=== PATIENT | female | born 1980 | race Hispanic/Latino ===

== ENCOUNTER 2017-01-10 13:41 | Outpatient (CLI) | payer MEDICARE, MEDICAID ==
--- NOTE | 2017-01-10 17:46 | ULT ---
ULTRASOUND PELVIC DOPPLER: Date: 01/10/17 HISTORY: Left lower quadrant pain. COMPARISON: None. TECHNIQUE: Real-time Sommers scale and color evaluation of the pelvis is performed via transabdominal and transvag inal approach. FINDINGS: The uterus has been removed. Right ovary measures 2.8 x 2.3 x 1.9 cm. Left ovary measures 1.8 x 1.4 x 1.1 cm. No free fluid. Adequate flow to both ovaries. IMPRESSION: Prior hysterectomy. Normal appearance of the ovaries. POS: [facility]
== END 2017-01-10 13:42 | disposition home or self-care (01) ==
LOC: SCSULT 13:41
PROVIDERS: ATTEND Family Medicine
DX: R10.31 Right lower quadrant pain (principal)
CPT/HCPCS: 76856; 93976

== ENCOUNTER 2017-01-28 05:34 | Emergency (ER) | payer MEDICARE, MEDICAID ==
[2017-01-28 06:08] LABS: #Eosinphils 0.1 thou/uL (0.0-0.7); #Lymphocytes 1.8 thou/uL (1.20-3.40); #Monocytes 0.6 thou/uL (0.11-0.59); #Neutrophils 3.7 thou/uL (1.40-6.50); %Basophils 0.3 % (0.0-1.0); %Eosinophils 2.4 % (0.0-10.0); %Lymphocytes 28.8 % (21.0-51.0); %Monocytes 9.3 % (0.0-10.0); Mean Platelet Volume 9.4 fL (7.4-10.4); White Blood Cell (WBC) Count 6.3 thou/uL (4.8-10.8)
[2017-01-28] MEDS ORDERED: Aspirin 325 MG TAB ONE (06:13)
[2017-01-28] MEDS ORDERED: Nitroglycerin 2% Ointment 1 INCH/1 GM Packet ONE (06:13)
[2017-01-28 06:22] LABS: ALT (SGPT) 20 U/L (8-55); AST (SGOT) 19 U/L (5-34); Alkaline Phosphatase 77 U/L (40-150); Anion Gap 10 mmol/L (10-20); BUN (Urea Nitrogen) 15 mg/dL (7.0-18.7); Bilirubin, Total 0.5 mg/dL (0.2-1.2); CK (CPK) 173 U/L (29-168); Calc. Creatinine Clearance 0 mL/min (70-130); Calcium 8.6 mg/dL (7.8-10.44); Carbon Dioxide 23 mmol/L (22-29); Chloride 108 mmol/L (98-107); Estimated GFR-MDRD Greater than 90; Globulin 2.8 g/dL (2.4-3.5); Lipase 10 U/L (8-78); Protein, Total 6.5 g/dL (6.0-8.3)
[2017-01-28 06:26] LABS: Troponin I Less than 0.010 ng/mL (< 0.028)
[2017-01-28] MEDS ORDERED: Acetaminophen 500 MG TAB ONE (06:44)
[2017-01-28] MEDS ORDERED: Ketorolac Tromethamine 30 MG/ML VIAL ONE (07:06)
--- NOTE | 2017-01-28 08:14 | RAD ---
EXAM: ONE VIEW CHEST: HISTORY: Chest pain. COMPARISON: 01/07/06. FINDINGS: Normal cardiac silhouette. The pulmonary vessels and hilum are normal. No consolidation or mass. N o pneumothorax or osseous abnormalities. IMPRESSION: No acute cardiopulmonary process. POS: [facility]
--- NOTE | 2017-03-12 10:41 | EKG ---
Test Reason : CHEST PAIN Blood Pressure : / mmHG Vent. Rate : 066 BPM Atrial Rate : 066 BPM P-R Int : 138 ms QRS Dur : 078 ms QT Int : 444 ms P-R-T Axes : 046 036 034 degrees QTc Int : 465 ms Normal sinus rhythm Normal ECG Confirmed by OLGA MICHEL M.D. ([id number]), supervising film or videotape editor ISAURA CALI ([id number]) on 03/12/2017 10:41:03 AM Referred By: Confirmed By:OLGA MICHEL M.D.
== END 2017-01-28 07:23 | disposition home or self-care (01) ==
LOC: ERS 05:34
DX: F41.9 Anxiety disorder, unspecified (principal); R07.9 Chest pain, unspecified; F32.9 Major depressive disorder, single episode, unspecified; Z87.891 Personal history of nicotine dependence
CPT/HCPCS: 71010; 80053; 82553; 83690; 84484; 85025; 93005; 96360; 96372; J1885

== ENCOUNTER 2017-03-10 08:18 | Emergency (ER) | payer MEDICAID, MEDICARE ==
[2017-03-10] MEDS ORDERED: Ondansetron HCl/PF 4 MG/2 ML Vial ONE ×2 (09:09→10:24)
--- NOTE | 2017-03-10 09:50 | RAD ---
CHEST ONE VIEW: History: Chest pain. Fever. Flu. Comparison: 01-28-17 FINDINGS: Cardiac silhouette and pulmonary vasculature are unremarkable. Mediastinum is midline. There is no co nfluent airspace consolidation or evidence of pneumothorax. IMPRESSION: No active cardiopulmonary abnormalities are demonstrated. POS: [facility]
[2017-03-10] MEDS ORDERED: Acetaminophen 500 MG TAB ONE (10:08)
[2017-03-10] MEDS ORDERED: Ketorolac Tromethamine 30 MG/ML VIAL ONE (10:08)
== END 2017-03-10 10:40 | disposition home or self-care (01) ==
LOC: ERS 08:18
DX: J11.1 Influenza due to unidentified influenza virus with other respiratory manifestations (principal); R11.2 Nausea with vomiting, unspecified; F41.9 Anxiety disorder, unspecified; F32.9 Major depressive disorder, single episode, unspecified; Z87.891 Personal history of nicotine dependence
CPT/HCPCS: 71010; 96361; 96374; 96375; 96376; J1885; J2405

== ENCOUNTER 2017-06-16 10:22 | Emergency (ER) | payer MEDICARE ==
[2017-06-16 11:52] LABS: Bilirubin Negative (Negative); Blood, Urine Negative (Negative); Clarity CLEAR (Clear); Glucose, Urine (Dipstick) Negative (Negative); Leukocyte Negative (Negative); Nitrite Negative (Negative); Protein, Urine (Dipstick) Negative (Neg-Trace); Specific Gravity, Urine 1.023 (1.002-1.036); Urobilinogen 0.2 mg/dL (0.2-1.0); pH, Urine 6.5 (5.0-9.0)
[2017-06-16 11:52] LABS: #Basophils 0.1 thou/uL (0.0-0.2); #Eosinphils 0.1 thou/uL (0.0-0.7); #Lymphocytes 1.4 thou/uL (1.20-3.40); #Monocytes 0.4 thou/uL (0.11-0.59); #Neutrophils 4.2 thou/uL (1.40-6.50); %Basophils 0.9 % (0.0-1.0); %Eosinophils 2.4 % (0.0-10.0); %Monocytes 5.8 % (0.0-10.0); %Neutrophils 67.8 % (42.0-75.0); Hemoglobin 15.3 g/dL (12.0-16.0); Mean Corpuscular HGB CONC 32.2 g/dL (32.0-36.0); Mean Corpuscular Hemoglobin 29.1 pg (27.0-31.0); Mean Corpuscular Volume 90.4 fl (81.0-99.0); Mean Platelet Volume 8.7 fL (7.4-10.4); Platelet Count 216 thou/uL (130-400); RBC Distribution Width 12.8 % (11.5-14.5); Red Blood Cell (RBC) Count 5.26 mill/uL (4.20-5.40); White Blood Cell (WBC) Count 6.2 thou/uL (4.8-10.8)
[2017-06-16 11:57] LABS: BHCG - Serum Negative (NEGATIVE); Pregs Control Background? CLEAR/WHITE (CLR/WHITE); Pregs Control Bar Appear? YES (CONTROL BAR)
[2017-06-16 12:04] LABS: ALT (SGPT) 18 U/L (8-55); AST (SGOT) 16 U/L (5-34); Albumin 3.5 g/dL (3.5-5.0); Alkaline Phosphatase 70 U/L (40-150); Anion Gap 8 mmol/L (10-20); BUN (Urea Nitrogen) 16 mg/dL (7.0-18.7); Bilirubin, Total 0.6 mg/dL (0.2-1.2); Calc. Creatinine Clearance 0 mL/min (70-130); Calcium 8.5 mg/dL (7.8-10.44); Carbon Dioxide 26 mmol/L (22-29); Chloride 108 mmol/L (98-107); Estimated GFR-MDRD Greater than 90; Globulin 2.4 g/dL (2.4-3.5); Glucose 86 mg/dL (70-105); Protein, Total 5.9 g/dL (6.0-8.3); Sodium 138 mmol/L (136-145)
[2017-06-16] MEDS ORDERED: Ondansetron ODT 4 MG TAB ONE (12:42)
--- NOTE | 2017-06-16 13:55 | CT ---
NONCONTRAST CT ABDOMEN AND PELVIS: 06/16/2017 HISTORY: Bloody stools. Family history of colon cancer. Weakness. Tired. COMPARISON: Noncontrast CT exam from 06/14/[address] exam from 07/26/2016. TECHNIQUE: Contiguous axial CT images are obtained through the abdomen and pelvis after the administration of or al contrast. No IV contrast was administered due to the patient's history of an iodine allergy. FINDINGS: The lung bases are clear. Post cholecystectomy changes are noted. The right kidney is rotated, but this is a stable finding. There is no hydronephrosis present. No r enal or ureteral calculi are seen. There is a calcification seen in the left kidney pelvis, which ap pears to overly a loop of bowel as opposed to representing a calculus in the distal left ureter. Aga in, there is no left-sided hydronephrosis present. The liver, spleen, pancreas, bilateral adrenal glands, and kidneys have a grossly normal, nonenhanced CT appearance. The urinary bladder is partially distended and grossly normal in appearance. The uterus is not visualized, related to a hysterectomy. There is a low density structure seen in th e right adnexal region, which is in the expected location of the patient's right ovary, noted on prio r exams, which probably represents a small right ovarian cyst. This measures 2.5 cm. A few scattered colonic diverticula are present. The appendix is visualized and normal in caliber. Sclerotic densities are again seen in the left iliac bone, likely related to small bone islands. IMPRESSION: 1. No acute findings are seen on this nonenhanced CT scan of the abdomen and pelvis. 2. Post cholecystectomy changes. 3. Hysterectomy. 4. No hydronephrosis, and no renal or ureteral calculi are seen. 5. Right adnexal cystic lesion, probably related to a right ovarian cyst. 6. Scattered colonic diverticulosis. POS: [facility]
== END 2017-06-16 14:27 | disposition home or self-care (01) ==
LOC: ERS 10:22
DX: K57.30 Diverticulosis of large intestine without perforation or abscess without bleeding (principal); K62.5 Hemorrhage of anus and rectum; F41.9 Anxiety disorder, unspecified; F32.9 Major depressive disorder, single episode, unspecified; Z87.891 Personal history of nicotine dependence
CPT/HCPCS: 74176; 80053; 81003; 82274; 83605; 84703; 85025; 86850; 86900; 86901; Q0162

== ENCOUNTER 2017-07-21 10:28 | Emergency (ER) | payer MEDICARE, MEDICAID | END 2017-07-21 12:16 | disposition home or self-care (01) | LOC: ERS 10:28 | DX: M54.5 Low back pain (principal); F41.9 Anxiety disorder, unspecified; F32.9 Major depressive disorder, single episode, unspecified; Z79.899 Other long term (current) drug therapy | CPT/HCPCS: 99283 ==

== ENCOUNTER 2017-08-10 11:32 | Emergency (ER) | payer MEDICARE, MEDICAID ==
[2017-08-10] MEDS ORDERED: Ketorolac Tromethamine 30 MG/ML VIAL ONE (12:53)
--- NOTE | 2017-08-10 13:22 | RAD ---
LUMBAR SPINE 3 VIEWS: Date: 08/10/17 HISTORY: Injury to back with low back pain. Recent fall with back and hip pain. FINDINGS: The lumbar vertebra maintain normal height and alignment. No evidence of acute compression fracture. There are mild to moderate degenerative changes with spurring from the lumbar vertebra. No evidence o f spondylolisthesis or spondylolysis. The disc spaces are maintained. Mild facet hypertrophy is prese nt in the lower lumbar spine. IMPRESSION: There are mild to moderate degenerative changes. No evidence of acute compression deformity or fractu re. POS: [facility]
--- NOTE | 2017-08-10 13:22 | RAD ---
AP PELVIS: Date: 08/10/17 HISTORY: Fall with injury to hip and back. FINDINGS: The pelvis appears intact. No osseous abnormality identified. IMPRESSION: No acute findings. POS: [facility]
== END 2017-08-10 13:47 | disposition home or self-care (01) ==
LOC: ERS 11:32
DX: M54.5 Low back pain (principal); M54.2 Cervicalgia; J45.909 Unspecified asthma, uncomplicated; F41.9 Anxiety disorder, unspecified; F43.10 Post-traumatic stress disorder, unspecified; F32.9 Major depressive disorder, single episode, unspecified; W17.89XA Other fall from one level to another, initial encounter
CPT/HCPCS: 72100; 72170; 96372; J1885

== ENCOUNTER 2017-09-08 08:19 | Outpatient (CLI) | payer MEDICARE, MEDICAID ==
[2017-09-08] MEDS ORDERED: Iopamidol 370 76% 50 ML VIAL FS ONE (09:40)
[2017-09-08] MEDS ORDERED: Iopamidol 370 76% 100 ML VIAL ONE (09:40)
--- NOTE | 2017-09-08 11:44 | CT ---
CT ABDOMEN AND PELVIS WITH CONTRAST: COMPARISON: 07/26/16. HISTORY: Status post colonoscopy. Two tumors were found at colonoscopy. Intermittent rectal bleeding. Abdom inal pain. TECHNIQUE: Multiple contiguous axial images were obtained in a CT of the abdomen and pelvis with contrast. P.o. contrast was administered. Coronal reformats were performed. Rectal contrast was also administered . FINDINGS: The patient is status post cholecystectomy and hysterectomy. The liver, kidneys, adrenal glands, spleen, and pancreas are unremarkable. No free air, free fluid, or stranding changes are seen in the abdomen and pelvis. The small bowel and colon are adequately filled with enteric contrast. No obvious mass is seen withi n the colon. No small bowel tumor is seen. No abdominal or pelvic lymphadenopathy are seen. The ap pendix is normal. Degenerative changes are seen in the spine. The visualized inferior thorax and abdominal wall soft t issues are unremarkable. IMPRESSION: No visualized mass seen within the colon on this examination. POS: [facility]
== END 2017-09-08 08:20 | disposition home or self-care (01) ==
LOC: CT 08:19
PROVIDERS: ATTEND Family Medicine
DX: R10.9 Unspecified abdominal pain (principal)
CPT/HCPCS: 74177

== ENCOUNTER 2017-10-20 19:58 | Emergency (ER) | payer MEDICARE, MEDICAID ==
--- NOTE | 2017-10-20 20:38 | RAD ---
AP VIEW OF THE CHEST: 10/20/17 INDICATION: Rib pain, left sided. IMPRESSION: No acute cardiopulmonary abnormality. COMMENTS: The exam is compared to prior dated 03/10/17. Lungs are clear. No definite acute osseous abnormality is evident. The cardiomediastinal silhouette is within normal limits. POS: [facility]
[2017-10-20] MEDS ORDERED: HYDROcodone/Acetaminophen 10/325 mg Tablet ONE (20:40)
== END 2017-10-20 20:50 | disposition home or self-care (01) ==
LOC: ERS 19:58
DX: S20.412A Abrasion of left back wall of thorax, initial encounter (principal); S29.9XXA Unspecified injury of thorax, initial encounter; J45.909 Unspecified asthma, uncomplicated; F43.10 Post-traumatic stress disorder, unspecified; X58.XXXA Exposure to other specified factors, initial encounter
CPT/HCPCS: 71045; 93005

== ENCOUNTER 2017-12-08 04:33 | Emergency (ER) | payer MEDICARE, MEDICAID ==
[2017-12-08] MEDS ORDERED: diphenhydrAMINE 50 MG/ML VIAL ONE (05:01)
[2017-12-08] MEDS ORDERED: Famotidine/PF 20 mg/2ml Vial ONE (05:01)
[2017-12-08] MEDS ORDERED: methylPREDNISolone Sod Succ/PF 125 MG/2 ML VIAL ONE (05:01)
[2017-12-08] MEDS ORDERED: EPINEPHrine 1 MG/ML AMP ONE (05:01)
[2017-12-08 06:02] LABS: #Basophils 0.1 thou/uL (0.0-0.2); #Eosinphils 0.2 thou/uL (0.0-0.7); #Lymphocytes 3.6 thou/uL (1.20-3.40); #Monocytes 0.6 thou/uL (0.11-0.59); #Neutrophils 5.5 thou/uL (1.40-6.50); %Basophils 0.7 % (0.0-1.0); %Eosinophils 1.5 % (0.0-10.0); %Lymphocytes 35.9 % (21.0-51.0); %Monocytes 6.4 % (0.0-10.0); %Neutrophils 55.5 % (42.0-75.0); Hemoglobin 14.3 g/dL (12.0-16.0); Mean Corpuscular HGB CONC 31.6 g/dL (32.0-36.0); Mean Corpuscular Hemoglobin 28.6 pg (27.0-31.0); Mean Corpuscular Volume 90.4 fL (78.0-98.0); Mean Platelet Volume 9.5 fL (7.4-10.4); Platelet Count 174 thou/uL (130-400); RBC Distribution Width 12.1 % (11.5-14.5); Red Blood Cell (RBC) Count 4.99 mill/uL (4.20-5.40); White Blood Cell (WBC) Count 9.9 thou/uL (4.8-10.8)
[2017-12-08 06:19] LABS: ALT (SGPT) 41 U/L (8-55); AST (SGOT) 68 U/L (5-34); Albumin 2.6 g/dL (3.5-5.0); Alkaline Phosphatase 59 U/L (40-150); Anion Gap 10 mmol/L (10-20); BUN (Urea Nitrogen) 12 mg/dL (7.0-18.7); Bilirubin, Total 0.3 mg/dL (0.2-1.2); Calc. Creatinine Clearance 0 mL/min (70-130); Calcium 7.3 mg/dL (7.8-10.44); Carbon Dioxide 23 mmol/L (22-29); Chloride 112 mmol/L (98-107); Estimated GFR-MDRD Greater than 90; Globulin 1.8 g/dL (2.4-3.5); Glucose 95 mg/dL (70-105); Potassium 3.5 mmol/L (3.5-5.1); Protein, Total 4.4 g/dL (6.0-8.3); Sodium 141 mmol/L (136-145)
--- NOTE | 2017-12-08 08:20 | RAD ---
PORTABLE CHEST: DATE: 12/08/17. PROVIDED CLINICAL HISTORY: Shortness of breath. FINDINGS: Comparison 10/20/17. Cardiac and mediastinal silhouette is unchanged in appearance. No focal consolid ation, pleural fluid, or pneumothorax apparent. IMPRESSION: No evidence for an acute cardiopulmonary process. POS: [facility]
[2017-12-08] MEDS ORDERED: Ketorolac Tromethamine 30 MG/ML VIAL ONE (08:34)
--- NOTE | 2017-12-08 10:03 | ULT ---
BILATERAL LOWER EXTREMITY VENOUS DUPLEX ULTRASOUND INCLUDING COLOR AND SPECTRAL DOPPLER IMAGING: History: 37-year-old female with history of right outer thigh pain following a recent hemorrhoidectomy surgery . FINDINGS: Exam performed from groin to ankle including visualized greater saphenous, common femoral, superficia l femoral, profunda femoral, popliteal, trifurcation, and posterior tibial vein regions. There is a s omewhat exaggerated waveform with some flow reversal noted. No intraluminal thrombus. There is phasic flow at all levels. IMPRESSION: Somewhat exaggerated waveform. No evidence for deep venous thrombosis. POS: [facility]
--- NOTE | 2017-12-10 15:19 | EKG ---
Test Reason : Blood Pressure : / mmHG Vent. Rate : 068 BPM Atrial Rate : 068 BPM P-R Int : 098 ms QRS Dur : 078 ms QT Int : 436 ms P-R-T Axes : 036 037 023 degrees QTc Int : 463 ms Sinus rhythm Otherwise normal ECG Confirmed by ROCCO DACOSTA DO ([id number]), science editor ISAURA CALI ([id number]) on 12/10/2017 3:18:54 PM Referred By: Confirmed By:ROCCO DACOSTA DO
== END 2017-12-08 10:51 | disposition home or self-care (01) ==
LOC: EEVIPCON 04:33 → ERS 04:33
DX: T78.2XXA Anaphylactic shock, unspecified, initial encounter (principal); M79.651 Pain in right thigh; J45.909 Unspecified asthma, uncomplicated; F41.9 Anxiety disorder, unspecified; F43.10 Post-traumatic stress disorder, unspecified; F32.9 Major depressive disorder, single episode, unspecified; Z79.899 Other long term (current) drug therapy
CPT/HCPCS: 36415; 71045; 80053; 85025; 93005; 93970; 94640; 96361; 96372; 96374; 96375; J0171; J1200; J1885; J2930; J7620; S0028

== ENCOUNTER 2017-12-12 08:41 | Observation (INO) | payer MEDICARE, MEDICAID ==
[2017-12-12] MEDS ORDERED: Mineral Oil ENEMA PR SCH (10:15)
[2017-12-12] MEDS ORDERED: Bisacodyl 10 MG SUPP PR SCH (10:15)
[2017-12-12] MEDS ORDERED: Bisacodyl 10 MG SUPP ONE (10:54)
[2017-12-12] MEDS ORDERED: Magnesium Citrate 300 ML BOT ONE (11:54)
[2017-12-12] MEDS ORDERED: GoLYTELY 4,000 ml Bottle PO SCH (12:00)
[2017-12-12 13:11] LABS: #Eosinphils 0.2 thou/uL (0.0-0.7); #Lymphocytes 1.7 thou/uL (1.20-3.40); #Monocytes 0.5 thou/uL (0.11-0.59); %Basophils 0.5 % (0.0-1.0); %Eosinophils 2.4 % (0.0-10.0); %Lymphocytes 20.3 % (21.0-51.0); %Monocytes 5.8 % (0.0-10.0); %Neutrophils 71.1 % (42.0-75.0); Hemoglobin 13.9 g/dL (12.0-16.0); Mean Corpuscular HGB CONC 31.3 g/dL (32.0-36.0); Mean Corpuscular Hemoglobin 28.5 pg (27.0-31.0); Mean Corpuscular Volume 90.9 fL (78.0-98.0); Mean Platelet Volume 9.4 fL (7.4-10.4); Platelet Count 191 thou/uL (130-400); RBC Distribution Width 12.1 % (11.5-14.5); Red Blood Cell (RBC) Count 4.87 mill/uL (4.20-5.40); White Blood Cell (WBC) Count 8.5 thou/uL (4.8-10.8)
[2017-12-12 13:26] LABS: ALT (SGPT) 52 U/L (8-55); AST (SGOT) 14 U/L (5-34); Albumin 3.1 g/dL (3.5-5.0); Alkaline Phosphatase 56 U/L (40-150); Anion Gap 8 mmol/L (10-20); BUN (Urea Nitrogen) 10 mg/dL (7.0-18.7); Bilirubin, Total 0.3 mg/dL (0.2-1.2); Calc. Creatinine Clearance 0 mL/min (70-130); Calcium 8.6 mg/dL (7.8-10.44); Carbon Dioxide 28 mmol/L (22-29); Chloride 108 mmol/L (98-107); Estimated GFR-MDRD 90; Globulin 2.1 g/dL (2.4-3.5); Glucose 87 mg/dL (70-105); Potassium 4.1 mmol/L (3.5-5.1); Protein, Total 5.2 g/dL (6.0-8.3); Sodium 140 mmol/L (136-145)
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
--- NOTE | 2017-12-12 15:28 | RAD ---
CHEST 1 VIEW AND ABDOMEN 2 VIEWS: Date: 12/12/17 HISTORY: Abdominal pain. Recent hemorrhoidectomy. FINDINGS: The heart size is normal. The lungs are clear. There are postop changes of cholecystectomy. No free a ir or differential fluid levels are seen in the bowel loops. The bowel gas pattern is normal. No susp icious calcifications are noted. There are degenerative changes in the spine. IMPRESSION: No acute process. POS: [facility]
[2017-12-12 15:40] VITALS: BMI 35.5
[2017-12-12] MEDS: Lactated Ringer's 1,000 ML IV SCH (16:32)
[2017-12-12] MEDS: Acetaminophen 325 MG TAB PO PRN (23:25)
[2017-12-12] MEDS: Ondansetron ODT 4 MG TAB PO PRN (23:25)
[2017-12-13] MEDS: Lactated Ringer's 1,000 ML IV SCH ×4 (00:54→21:41)
--- NOTE | 2017-12-13 05:51 | PDOC.FM ---
- Subjective Subjective: Reports having loose BM's overnight with some relief of abdominal pain. She still has some RLQ pain. Endorses scant blood in stool and shortness of breath. Denies chest pain. No questions or concerns at this time. - Objective MAR Reviewed: Yes Vital Signs & Weight: Vital Signs (12 hours) Temp Pulse Resp BP Pulse Ox 12/13/17 03:10 98.5 F 61 20 103/60 97 12/12/17 23:11 98.5 F 56 L 18 129/70 97 12/12/17 19:30 99.2 F 65 16 115/70 97 Weight Weight 82.962 kg I&O: 12/11/17 12/12/17 12/13/17 06:59 06:59 06:59 Intake Total 250 Output Total 2 Balance 248 Result Diagrams: 12/12/17 12:58 12/12/17 12:58 Phys Exam - Physical Examination Constitutional: NAD Neck: supple Respiratory: no wheezing, clear to auscultation bilateral Cardiovascular: RRR, no significant murmur Gastrointestinal: soft, non-tender, positive bowel sounds Musculoskeletal: pulses present Psychiatric: normal affect, A&O x 3 Dx/Plan (1) Constipation Code(s): K59.00 - CONSTIPATION, UNSPECIFIED Status: Acute (2) Depression Code(s): F32.9 - MAJOR DEPRESSIVE DISORDER, SINGLE EPISODE, UNSPECIFIED Status : Chronic (3) Anxiety Code(s): F41.9 - ANXIETY DISORDER, UNSPECIFIED Status: Chronic - Plan Plan: Ms White is a 37yo female with pmh of anxiety, depression, and asthma presenting with constipation after recent hemorroidectomy Constipation - Failed home treatment with Miralax and MOM - Review KUB, appeared nml. Radiologist read as nml gas bowel pattern - s/p Dulcolax, fleet mineral oil enema - Chiara 10/12 - LR @125 - I&Os - Encourage PO hydration - Will need to follow up with surgeon who preformed procedure - Sitz baths PRN - will need bowel regimen with dc Asthma - Continue Albuterol PRN Anxiety/Depression - Currently not on medications Code Status: FULL DVT ppx: Lovenox
[2017-12-13] MEDS: Acetaminophen 325 MG TAB PO PRN ×2 (09:19→23:53)
[2017-12-13] MEDS: Enoxaparin Sodium 40 MG/0.4 ML SYRINGE SC SCH (09:19)
[2017-12-13 11:48] LABS: BHCG - Serum Negative (NEGATIVE); Pregs Control Background? CLEAR/WHITE (CLR/WHITE); Pregs Control Bar Appear? YES (CONTROL BAR)
[2017-12-13] MEDS: Benzocaine/Menthol 20-0.5% 60 ML CAN TOP PRN ×2 (12:30→17:08)
--- NOTE | 2017-12-13 12:50 | PRG ---
DATE OF SERVICE: 12/13/2017 Ms. White was admitted with significant abdominal pain and constipation. She has been unable to h ave a smooth bowel movement, because of hemorrhoid surgery about a week ago. She is also complaining of a great deal of discomfort in the right lower quadrant. She is afebrile, and she has a normal wh ite count, but for completeness sake, we will investigate initially with an ultrasound of the abdomen . In the meantime, we will institute a bowel regimen that will hopefully produce bowel movements.
--- NOTE | 2017-12-13 14:00 | ULT ---
ULTRASOUND ABDOMEN LIMITED: History: Right lower quadrant pain. FINDINGS: Sonographic evaluation of the right lower quadrant shows no fluid collections or free fluid at the le [place]ron of the appendix. Cysts at the right ovary measures up to 3.6 cm. Good color and spectral doppler flow within the ovary . IMPRESSION: Right ovarian cyst, 3.6 cm. POS: [facility]
[2017-12-14] MEDS: Lactated Ringer's 1,000 ML IV SCH (05:48)
--- NOTE | 2017-12-14 05:50 | PDOC.FM ---
- Subjective Subjective: Patient looks much better this AM and is sitting up in bed eating breakfast smiling. She reports abdominal pain has resolved with large BM, does endorse mild suprapubic pain and dysuria. Feels up to going home today. No other questions or concerns. - Objective MAR Reviewed: Yes Vital Signs & Weight: Vital Signs (12 hours) Temp Pulse Resp BP Pulse Ox 12/14/17 03:50 98.8 F 65 14 111/60 96 12/13/17 23:46 98.7 F 61 16 119/64 98 12/13/17 19:18 98.4 F 73 15 121/66 95 Weight Weight 82.962 kg I&O: 12/12/17 12/13/17 12/14/17 06:59 06:59 06:59 Intake Total 1429 2260 Output Total 2 Balance 1427 2260 Result Diagrams: 12/12/17 12:58 12/12/17 12:58 Phys Exam - Physical Examination Constitutional: NAD Neck: supple Respiratory: no wheezing, clear to auscultation bilateral Cardiovascular: RRR, no significant murmur Gastrointestinal: soft, non-tender, positive bowel sounds Musculoskeletal: no edema Neurological: moves all 4 limbs Psychiatric: normal affect, A&O x 3 Dx/Plan (1) Constipation Code(s): K59.00 - CONSTIPATION, UNSPECIFIED Status: Acute (2) Depression Code(s): F32.9 - MAJOR DEPRESSIVE DISORDER, SINGLE EPISODE, UNSPECIFIED Status : Chronic (3) Anxiety Code(s): F41.9 - ANXIETY DISORDER, UNSPECIFIED Status: Chronic - Plan Plan: Ms White is a 37yo female with pmh of anxiety, depression, and asthma presenting with constipation after recent hemorroidectomy Constipation - Failed home treatment with Miralax and MOM - Review KUB, appeared nml. Radiologist read as nml gas bowel pattern - s/p Dulcolax, fleet mineral oil enema - Chiara 10/12 - I&Os - Encourage PO hydration - Will need to follow up with surgeon who preformed procedure - Sitz baths PRN - will need bowel regimen with dc Dysuria - UA Asthma - Continue Albuterol PRN Anxiety/Depression - Currently not on medications Code Status: FULL DVT ppx: Lovenox
[2017-12-14 08:26] VITALS: BP 114/64; TEMP 98.4
[2017-12-14] MEDS: Acetaminophen 325 MG TAB PO PRN (09:52)
[2017-12-14] MEDS: Ondansetron ODT 4 MG TAB PO PRN (09:53)
[2017-12-14] MEDS: Enoxaparin Sodium 40 MG/0.4 ML SYRINGE SC SCH (09:54)
[2017-12-14 11:12] LABS: Bilirubin Negative (Negative); Blood, Urine Negative (Negative); Clarity CLEAR (Clear); Glucose, Urine (Dipstick) Negative (Negative); Leukocyte Negative (Negative); Nitrite Negative (Negative); Protein, Urine (Dipstick) Negative (Neg-Trace); Specific Gravity, Urine 1.006 (1.002-1.036); Urobilinogen 0.2 mg/dL (0.2-1.0)
--- NOTE | 2017-12-14 11:52 | PRG ---
DATE OF SERVICE: 12/14/2017 This is an addendum to the note of Dr. Marisa Enriquez. Ms. White had a bowel movement yesterday and looks and feels much better. Her rectal pain is grea tly diminished. She will be discharged on a bowel regimen to follow up with her colorectal surgeon t omorrow.
--- NOTE | 2017-12-14 20:56 | DIS-2 ---
DATE OF ADMISSION: 12/12/2017 DATE OF DISCHARGE: 12/14/2017 RESIDENT: Marisa Enriquez MD, PGY1 ADMITTING ATTENDING: John Kuhn MD DISCHARGE ATTENDING: John Kuhn MD CONSULTATIONS: None. PROCEDURES: 1. Acute abdominal series that shows no acute process. 2. Abdominal ultrasound showing a right ovarian cyst 3.6 cm. PRIMARY DIAGNOSIS: Constipation. SECONDARY DIAGNOSES: 1. Dysuria. 2. Asthma. 3. Anxiety and depression. DISCHARGE MEDICATIONS: 1. MiraLax 17 grams b.i.d. and daily thereafter. HISTORY OF PRESENT ILLNESS AND HOSPITAL COURSE: The patient underwent recent hemorrhoidectomy on 12/06/2017, after which she had been experiencing very hard stools and has been constipated for over a week. She had tried MiraLax at home, but failed home therapy. She received Dulcolax and a fleet enema in the ED with no result. Pt was started on GoLYTELY. She was able to have stools and abdominal pain resolved. DISPOSITION: Stable. DISCHARGE INSTRUCTIONS: 1. Location: Home. 2. Diet: Regular. 3. Activity: No restrictions. 4. Follow up with PCP within 3 days and surgeon at the [facility] who performed procedure tomorrow. SIDNEY
== END 2017-12-14 12:23 | disposition home or self-care (01) ==
LOC: ERS 08:41 → 2SW 15:03
PROVIDERS: ADMIT Family Medicine; ATTEND Family Medicine
DX: K59.00 Constipation, unspecified (principal); R30.0 Dysuria; F12.10 Cannabis abuse, uncomplicated; J45.909 Unspecified asthma, uncomplicated; F32.9 Major depressive disorder, single episode, unspecified; F41.9 Anxiety disorder, unspecified; G43.909 Migraine, unspecified, not intractable, without status migrainosus; Z79.899 Other long term (current) drug therapy; Z88.5 Allergy status to narcotic agent; Z88.8 Allergy status to other drugs, medicaments and biological substances; Z91.040 Latex allergy status; Z91.041 Radiographic dye allergy status; Z80.0 Family history of malignant neoplasm of digestive organs
CPT/HCPCS: 74022; 76705; 80053; 81003; 84703; 85025; 96360; 96361 ×3; 96372; 99285; G0378 ×2; J1650; Q0162

== ENCOUNTER 2017-12-28 13:46 | Outpatient (CLI) | payer BC, MEDICARE, MEDICAID ==
--- NOTE | 2017-12-30 10:54 | EEG ---
Referring Physician: Gilbert FOX EEG # [id number] TEST TYPE: ROUTINE OUTPATIENT REPORT: AN EEG USING THE INTERNATIONAL TEN-TWENTY SYSTEM OF ELECTRODE PLACEMENT WAS PERFORMED. The waking background is a high amplitude 9-10 hertz Alpha frequency. The patient remained awake throughout the study. Hyperventilation and photic stimulation were unremarkable. No epileptiform features were seen. IMPRESSION THIS IS A NORMAL AWAKE EEG. Learning Center Coordinator: CARLO Supervisor [employer]: DAIN.MELINDA LITTLE
== END 2017-12-28 13:47 | disposition home or self-care (01) ==
LOC: EEG 13:46
PROVIDERS: ATTEND Psychiatry & Neurology Neurology
DX: S06.890A Other specified intracranial injury without loss of consciousness, initial encounter (principal)
CPT/HCPCS: 95816

== ENCOUNTER 2018-03-26 10:25 | Emergency (ER) | payer MEDICARE, MEDICAID ==
[2018-03-26] MEDS ORDERED: Meclizine HCl 25 MG TAB ONE (10:55)
[2018-03-26] MEDS ORDERED: Ondansetron ODT 8 MG TAB ONE (11:10)
[2018-03-26 11:17] LABS: #Basophils 0.1 thou/uL (0.0-0.2); #Eosinphils 0.2 thou/uL (0.0-0.7); #Lymphocytes 2.1 thou/uL (1.20-3.40); #Monocytes 0.5 thou/uL (0.11-0.59); #Neutrophils 4.1 thou/uL (1.40-6.50); %Basophils 0.8 % (0.0-1.0); %Eosinophils 2.6 % (0.0-10.0); %Lymphocytes 30.7 % (21.0-51.0); %Monocytes 7.1 % (0.0-10.0); %Neutrophils 58.8 % (42.0-75.0); Hemoglobin 15.3 g/dL (12.0-16.0); Mean Corpuscular HGB CONC 32.3 g/dL (32.0-36.0); Mean Corpuscular Hemoglobin 28.9 pg (27.0-31.0); Mean Corpuscular Volume 89.6 fL (78.0-98.0); Mean Platelet Volume 9.5 fL (7.4-10.4); Platelet Count 178 thou/uL (130-400); RBC Distribution Width 12.1 % (11.5-14.5); Red Blood Cell (RBC) Count 5.29 mill/uL (4.20-5.40)
[2018-03-26 11:23] LABS: BHCG - Serum Negative (NEGATIVE); Pregs Control Background? CLEAR/WHITE (CLR/WHITE); Pregs Control Bar Appear? YES (CONTROL BAR)
[2018-03-26 11:25] LABS: Bilirubin Negative (Negative); Blood, Urine Negative (Negative); Clarity CLEAR (Clear); Glucose, Urine (Dipstick) Negative (Negative); Leukocyte Negative (Negative); Nitrite Negative (Negative); Protein, Urine (Dipstick) Negative (Neg-Trace); Specific Gravity, Urine 1.024 (1.002-1.036); Urobilinogen 0.2 mg/dL (0.2-1.0); pH, Urine 5.5 (5.0-9.0)
[2018-03-26 11:37] LABS: ALT (SGPT) 20 U/L (8-55); AST (SGOT) 17 U/L (5-34); Albumin 3.7 g/dL (3.5-5.0); Alkaline Phosphatase 70 U/L (40-150); Anion Gap 6 mmol/L (10-20); BUN (Urea Nitrogen) 13 mg/dL (7.0-18.7); Bilirubin, Total 0.4 mg/dL (0.2-1.2); Calc. Creatinine Clearance 0 mL/min (70-130); Calcium 8.6 mg/dL (7.8-10.44); Carbon Dioxide 23 mmol/L (22-29); Chloride 86 mmol/L (98-107); Estimated GFR-MDRD 87; Globulin 2.4 g/dL (2.4-3.5); Glucose 99 mg/dL (70-105); Lipase 7 U/L (8-78); Protein, Total 6.1 g/dL (6.0-8.3)
[2018-03-26 11:52] LABS: Potassium 2.9 mmol/L (3.5-5.1); Sodium 112 mmol/L (136-145)
[2018-03-26 13:13] LABS: Anion Gap 9 mmol/L (10-20); BUN (Urea Nitrogen) 13 mg/dL (7.0-18.7); Calc. Creatinine Clearance 0 mL/min (70-130); Calcium 8.1 mg/dL (7.8-10.44); Carbon Dioxide 23 mmol/L (22-29); Chloride 110 mmol/L (98-107); Estimated GFR-MDRD Greater than 90; Glucose 93 mg/dL (70-105); Magnesium 1.9 mg/dL (1.6-2.6); Potassium 3.8 mmol/L (3.5-5.1); Sodium 138 mmol/L (136-145)
[2018-03-26 13:58] LABS: ALT (SGPT) 17 U/L (8-55); AST (SGOT) 17 U/L (5-34); Albumin 3.2 g/dL (3.5-5.0); Alkaline Phosphatase 59 U/L (40-150); Bilirubin, Direct 0.1 mg/dL (0.1-0.3); Bilirubin, Total 0.3 mg/dL (0.2-1.2); Protein, Total 5.3 g/dL (6.0-8.3)
== END 2018-03-26 14:29 | disposition home or self-care (01) ==
LOC: ERS 10:25
DX: R10.11 Right upper quadrant pain (principal); J45.909 Unspecified asthma, uncomplicated; F43.10 Post-traumatic stress disorder, unspecified; F41.9 Anxiety disorder, unspecified; Z79.51 Long term (current) use of inhaled steroids
CPT/HCPCS: 36415; 51701; 80053; 81003; 83690; 83735; 84703; 85025; 96372; A4353

== ENCOUNTER 2018-05-13 11:19 | Emergency (ER) | payer MEDICARE, MEDICAID ==
[2018-05-13] MEDS ORDERED: traMADol HCl 50 MG TAB ONE (12:17)
== END 2018-05-13 12:36 | disposition home or self-care (01) ==
LOC: ERS 11:19
DX: K08.89 Other specified disorders of teeth and supporting structures (principal); K06.8 Other specified disorders of gingiva and edentulous alveolar ridge; F43.10 Post-traumatic stress disorder, unspecified; F41.9 Anxiety disorder, unspecified; F32.9 Major depressive disorder, single episode, unspecified
CPT/HCPCS: 99282

== ENCOUNTER 2018-05-30 12:40 | Emergency (ER) | payer MEDICARE, MEDICAID ==
--- NOTE | 2018-05-30 14:47 | RAD ---
EXAM: RIGHT HIP TWO VIEWS: History: Right hip pain following a fall. FINDINGS/IMPRESSION: Mild degenerative changes. No fracture or dislocation. POS: [facility]
--- NOTE | 2018-05-30 14:53 | RAD ---
EXAM: AP PELVIS: History: Pain following injury from a fall. Comparison: 08-10-17 FINDINGS/IMPRESSION: No fracture, dislocation or other acute osseous abnormality. Stable from prior study. POS: [facility]
--- NOTE | 2018-05-30 15:13 | RAD ---
EXAM: LUMBAR SPINE THREE VIEWS: History: Low back pain and right hip pain after a fall. Comparison: 08-10-17 FINDINGS: Generalized disc osteophytosis and facet arthrosis. Mild narrowing at L4-5. No acute fracture or disl ocation. IMPRESSION: Lumbar spondylosis. Stable from prior study. No acute fracture or dislocation. POS: [facility]
== END 2018-05-30 15:00 | disposition home or self-care (01) ==
LOC: ERS 12:40
DX: M54.5 Low back pain (principal); M25.551 Pain in right hip; J45.909 Unspecified asthma, uncomplicated; F41.9 Anxiety disorder, unspecified; F32.9 Major depressive disorder, single episode, unspecified; F17.210 Nicotine dependence, cigarettes, uncomplicated; W19.XXXA Unspecified fall, initial encounter
CPT/HCPCS: 72100; 72170

== ENCOUNTER 2018-06-06 10:46 | Emergency (ER) | payer MEDICARE, MEDICAID, OTHER ==
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
[2018-06-06] MEDS ORDERED: Cyclobenzaprine 10 MG TAB ONE (11:52)
== END 2018-06-06 12:07 | disposition home or self-care (01) ==
LOC: ERS 10:46
DX: S16.1XXA Strain of muscle, fascia and tendon at neck level, initial encounter (principal); S70.02XA Contusion of left hip, initial encounter; J45.909 Unspecified asthma, uncomplicated; F41.9 Anxiety disorder, unspecified; F32.9 Major depressive disorder, single episode, unspecified; F17.210 Nicotine dependence, cigarettes, uncomplicated; V43.92XA Unspecified car occupant injured in collision with other type car in traffic accident, initial encounter
CPT/HCPCS: 70450; 72125

== ENCOUNTER 2018-08-23 14:11 | Emergency (ER) | payer MEDICARE, MEDICAID ==
[2018-08-23 14:46] LABS: #Basophils 0.1 thou/uL (0.0-0.2); #Eosinphils 0.2 thou/uL (0.0-0.7); #Lymphocytes 1.9 thou/uL (1.20-3.40); #Monocytes 0.4 thou/uL (0.11-0.59); #Neutrophils 4.1 thou/uL (1.40-6.50); %Basophils 0.9 % (0.0-1.0); %Eosinophils 2.8 % (0.0-10.0); %Lymphocytes 28.1 % (21.0-51.0); %Monocytes 6.4 % (0.0-10.0); %Neutrophils 61.9 % (42.0-75.0); Hemoglobin 15.6 g/dL (12.0-16.0); Mean Corpuscular HGB CONC 31.4 g/dL (32.0-36.0); Mean Corpuscular Hemoglobin 28.3 pg (27.0-31.0); Mean Corpuscular Volume 90.3 fL (78.0-98.0); Platelet Count 204 thou/uL (130-400); RBC Distribution Width 12.4 % (11.5-14.5); Red Blood Cell (RBC) Count 5.52 mill/uL (4.20-5.40); White Blood Cell (WBC) Count 6.6 thou/uL (4.8-10.8)
--- NOTE | 2018-08-23 15:01 | RAD ---
FRONTAL VIEW CHEST: 08/23/18 Exam is compared to 12/08/17. INDICATION: Chest pain for two weeks. FINDINGS: There is no lobar consolidation, effusion, or discrete pneumothorax. The cardiac silhouette is of nor mal size. IMPRESSION: No focal consolidation. POS: [facility]
[2018-08-23 15:11] LABS: ALT (SGPT) 29 U/L (8-55); AST (SGOT) 21 U/L (5-34); Albumin 3.4 g/dL (3.5-5.0); Alkaline Phosphatase 60 U/L (40-150); Anion Gap 10 mmol/L (10-20); BUN (Urea Nitrogen) 14 mg/dL (7.0-18.7); Bilirubin, Total 0.4 mg/dL (0.2-1.2); Calc. Creatinine Clearance 0 mL/min (70-130); Calcium 8.2 mg/dL (7.8-10.44); Carbon Dioxide 24 mmol/L (22-29); Chloride 107 mmol/L (98-107); Estimated GFR-MDRD Greater than 90; Globulin 2.2 g/dL (2.4-3.5); Glucose 89 mg/dL (70-105); Potassium 4.2 mmol/L (3.5-5.1); Protein, Total 5.6 g/dL (6.0-8.3); Sodium 137 mmol/L (136-145)
[2018-08-23] MEDS ORDERED: methylPREDNISolone Sod Succ/PF 125 MG/2 ML VIAL ONE (15:38)
[2018-08-23] MEDS ORDERED: Lorazepam 2 MG/ML VIAL ONE (15:38)
[2018-08-23] MEDS ORDERED: Lorazepam 1 MG TAB ONE (15:54)
[2018-08-23] MEDS ORDERED: predniSONE 20 MG TAB ONE (15:54)
[2018-08-23 16:07] LABS: BHCG - Serum Negative (NEGATIVE); Pregs Control Background? CLEAR/WHITE (CLR/WHITE); Pregs Control Bar Appear? YES (CONTROL BAR)
[2018-08-23] MEDS ORDERED: Ketorolac Tromethamine 60 MG/2 ML VIAL ONE (17:07)
[2018-08-23] MEDS ORDERED: traMADol HCl 50 MG TAB ONE (17:29)
--- NOTE | 2018-08-26 10:27 | EKG ---
Test Reason : CHEST PAIN Blood Pressure : / mmHG Vent. Rate : 064 BPM Atrial Rate : 064 BPM P-R Int : 124 ms QRS Dur : 076 ms QT Int : 438 ms P-R-T Axes : 030 031 030 degrees QTc Int : 451 ms Normal sinus rhythm Normal ECG Confirmed by MOOK BRUCE ([id number]), editor in chief newspaper CHERY HENSLEY ([id number]) on 08/26/2018 10:26:49 AM Referred By: Confirmed By:MOOK BRUCE
== END 2018-08-23 17:41 | disposition home or self-care (01) ==
LOC: ERS 14:11
DX: J45.901 Unspecified asthma with (acute) exacerbation (principal); F41.9 Anxiety disorder, unspecified; F32.9 Major depressive disorder, single episode, unspecified; F17.210 Nicotine dependence, cigarettes, uncomplicated; F43.10 Post-traumatic stress disorder, unspecified
CPT/HCPCS: 36415; 71045; 80053; 84484; 84703; 85025; 93005; 94640; J1885; J2060; J2930; J7512; J7620

== ENCOUNTER 2018-12-22 08:34 | Outpatient (CLI) | payer MEDICARE ==
--- NOTE | 2018-12-22 12:16 | MRI ---
MRI BRAIN WITH AND WITHOUT CONTRAST: Date: 12/22/18 CLINICAL HISTORY: Chronic intractable headache. Reference made to head CT 06/06/18. FINDINGS: The ventricular system is normal in size. Septum pellucidum and third ventricle are midline. No evide nce of acute territorial infarction, mass effect, or midline shift. No intracranial hemorrhagic susce ptibility. There is no pathologic intra-axial enhancement. Moderate size retention cyst is centered a t the posterior right maxillary sinus. Skull base flow-voids are maintained. IMPRESSION: There are no acute intracranial abnormalities. POS: [facility]
--- NOTE | 2018-12-22 12:36 | MRI ---
MRI CERVICAL SPINE WITH AND WITHOUT CONTRAST: INDICATION: Chronic intractable headaches. FINDINGS: The cervical spinal cord demonstrates appropriate morphology, contour, and signal intensity. There i s no pathologic intramedullary enhancement. Marrow signal of the cervical spine vertebrae is maintained. Disk space heights and vertebral body h eights are preserved. No significant stenosis at the C1-2 or C2-3 levels. C3-4: There is a mild concentric disk bulge with superimposed central disk protrusion which abuts bu t does not significantly deform the cervical spinal cord. Mild central canal narrowing. No high-gra de foraminal stenosis. C4-5: Small central disk protrusion with effacement of the ventral thecal sac and mild narrowing of the central canal at the midline. Mild uncinate process hypertrophy is present bilaterally with mini mal narrowing of the neural foramina. C5-6: Broad-based disk bulge is present. Mild effacement of the ventral thecal sac with mild narrow ing of the central canal and mild bilateral neural foraminal narrowing when combined with uncinate pr ocess hypertrophy. C6-7: Mild, right asymmetric disk-osteophyte with slight effacement of the ventral thecal sac. No h igh-grade central canal stenosis. There is uncinate process hypertrophy right greater than left with mild right neural foraminal narrowing. No significant left foraminal compromise. C7-T1: No high-grade central canal or neural foraminal stenosis. There are no significant subluxations of the cervical spine. No paraspinous edema of the soft tissue s. IMPRESSION: 1. Multilevel degenerative changes of the cervical spine, as outlined above. 2. No evidence of pathologic enhancing intramedullary mass or mass producing enhancement of the vert ebral canal. POS: [facility]
== END 2018-12-22 08:35 | disposition home or self-care (01) ==
LOC: SCSMRI 08:34
PROVIDERS: ATTEND Nurse Practitioner Acute Care
DX: R51 Headache (principal); M54.2 Cervicalgia; M47.812 Spondylosis without myelopathy or radiculopathy, cervical region
CPT/HCPCS: 70553; 72156; 82565

== ENCOUNTER 2019-03-15 06:15 | Emergency (ER) | payer MEDICARE ==
[2019-03-15 06:54] LABS: Bilirubin Negative (Negative); Blood, Urine Negative (Negative); Clarity Clear (Clear); Glucose, Urine (Dipstick) Normal (Negative); Leukocyte Negative Leu/uL (Negative); Nitrite Negative (Negative); Protein, Urine (Dipstick) Negative (Neg-Trace); Urobilinogen Normal mg/dL (Less than 2)
[2019-03-15 06:56] LABS: Pregnancy Test - Urine (BHCG) Negative (Negative); Pregu Control Background? CLEAR/WHITE (CLR/WHITE); Pregu Control Bar Appear? YES (CONTROL BAR); Specific Gravity 1.028 (1.002-1.036)
== END 2019-03-15 07:10 | disposition home or self-care (01) ==
LOC: ERS 06:15
DX: J45.901 Unspecified asthma with (acute) exacerbation (principal); J06.9 Acute upper respiratory infection, unspecified; F41.9 Anxiety disorder, unspecified; F31.9 Bipolar disorder, unspecified; F17.210 Nicotine dependence, cigarettes, uncomplicated
CPT/HCPCS: 81003; 81025; 94640; J7620

== ENCOUNTER 2019-09-04 05:56 | Emergency (ER) | payer MEDICARE, OTHER ==
[2019-09-04] MEDS ORDERED: Ondansetron ODT 8 MG TAB ONE (06:38)
--- NOTE | 2019-09-04 08:05 | RAD ---
CHEST 1 VIEW: INDICATION: Cough, body aches, sore throat, headache, and history of a daughter with COVID disease. COMPARISON: Prior chest radiograph dated November 27, 2018. FINDINGS: The lungs are clear. The heart size is normal. NO pleural effusion or pneumothorax is evident. No acute osseous abnormality is noted. IMPRESSION: No acute cardiopulmonary abnormality. POS: [facility]
== END 2019-09-04 07:00 | disposition home or self-care (01) ==
LOC: ERS 05:56
DX: J06.9 Acute upper respiratory infection, unspecified (principal); J45.909 Unspecified asthma, uncomplicated; F41.9 Anxiety disorder, unspecified; F43.10 Post-traumatic stress disorder, unspecified; F17.210 Nicotine dependence, cigarettes, uncomplicated; F31.9 Bipolar disorder, unspecified; Z20.828 Contact with and (suspected) exposure to other viral communicable diseases
CPT/HCPCS: 71045; 99283; U0003; 87635; Q0162

== ENCOUNTER 2019-09-23 11:45 | Emergency (ER) | payer MEDICARE ==
--- NOTE | 2019-09-23 12:51 | RAD ---
RADIOGRAPH LEFT KNEE 4VIEWS: DATE: 09/23/2019 HISTORY: 39-year-old female with acute traumatic left knee pain FINDINGS: There is no evidence of fracture or dislocation. There is no evidence of periostitis, permeative lesi on, osteolytic lesion, or osteoblastic lesion. The joint spaces are maintained without erosions or significant osteophytes. No joint effusion is identified. IMPRESSION: Normal
--- NOTE | 2019-09-23 12:52 | RAD ---
RADIOGRAPH LEFT ELBOW 4VIEWS: DATE: 09/23/2019 HISTORY: 39-year-old female with acute, traumatic left elbow pain FINDINGS: There is no evidence of fracture or dislocation. There is no evidence of periostitis, permeative lesi on, osteolytic lesion, or osteoblastic lesion. The joint spaces are maintained without erosions or significant osteophytes. IMPRESSION: Normal
--- NOTE | 2019-09-23 12:53 | RAD ---
Radiograph left shoulder 3 views: HISTORY: 39-year-old female with acute traumatic left shoulder pain FINDINGS: No fracture or dislocation. IMPRESSION: Negative
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
== END 2019-09-23 14:00 | disposition home or self-care (01) ==
LOC: ERS 11:45 → EEVIPCON 11:45 → ERS 14:00
DX: M54.2 Cervicalgia (principal); M25.561 Pain in right knee; M25.562 Pain in left knee; M25.522 Pain in left elbow; F41.9 Anxiety disorder, unspecified; F32.9 Major depressive disorder, single episode, unspecified; F17.210 Nicotine dependence, cigarettes, uncomplicated; Y04.0XXA Assault by unarmed brawl or fight, initial encounter
CPT/HCPCS: 72125; 72170

== ENCOUNTER 2020-03-12 16:56 | Emergency (ER) | payer MEDICARE ==
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
== END 2020-03-12 21:27 | disposition left against medical advice (07) ==
LOC: ERS 16:56
DX: Z53.21 Procedure and treatment not carried out due to patient leaving prior to being seen by health care provider (principal)
CPT/HCPCS: 71045

== ENCOUNTER 2020-07-07 13:38 | Outpatient (CLI) | payer MEDICARE | END 2020-07-07 13:39 | disposition home or self-care (01) | LOC: RAD 13:38 | PROVIDERS: ATTEND Family Medicine | DX: G89.4 Chronic pain syndrome (principal); M50.90 Cervical disc disorder, unspecified, unspecified cervical region; M51.9 Unspecified thoracic, thoracolumbar and lumbosacral intervertebral disc disorder; M79.18 Myalgia, other site; M47.812 Spondylosis without myelopathy or radiculopathy, cervical region; M47.814 Spondylosis without myelopathy or radiculopathy, thoracic region | CPT/HCPCS: 72040; 72072 ==

== ENCOUNTER 2020-12-13 12:05 | Emergency (ER) | payer MEDICARE ==
[2020-12-13 12:56] LABS: #Eosinphils 0.2 thou/uL (0.0-0.7); #Lymphocytes 1.8 thou/uL (1.20-3.40); #Monocytes 0.6 thou/uL (0.11-0.59); #Neutrophils 5.3 thou/uL (1.40-6.50); %Basophils 0.5 % (0.0-1.0); %Eosinophils 2.3 % (0.0-10.0); %Lymphocytes 23.1 % (21.0-51.0); %Monocytes 7.2 % (0.0-10.0); %Neutrophils 66.8 % (42.0-75.0); Hemoglobin 14.5 g/dL (12.0-16.0); Mean Corpuscular HGB CONC 32.7 g/dL (32.0-36.0); Mean Corpuscular Hemoglobin 29.4 pg (27.0-31.0); Mean Corpuscular Volume 89.7 fL (78.0-98.0); Mean Platelet Volume 10.3 fL (7.4-10.4); Platelet Count 198 thou/uL (130-400); RBC Distribution Width 12.8 % (11.5-14.5); Red Blood Cell (RBC) Count 4.92 mill/uL (4.20-5.40); White Blood Cell (WBC) Count 7.9 thou/uL (4.8-10.8)
[2020-12-13 13:16] LABS: ALT (SGPT) 15 U/L (8-55); AST (SGOT) 13 U/L (5-34); Albumin 3.5 g/dL (3.5-5.0); Alkaline Phosphatase 85 U/L (40-110); Anion Gap 10 mmol/L (10-20); BUN (Urea Nitrogen) 14 mg/dL (7.0-18.7); Bilirubin, Total 0.3 mg/dL (0.2-1.2); Calc. Creatinine Clearance 0 mL/min (70-130); Calcium 8.5 mg/dL (7.8-10.44); Carbon Dioxide 23 mmol/L (22-29); Chloride 110 mmol/L (98-107); Globulin 2.3 g/dL (2.4-3.5); Glucose 88 mg/dL (70-105); Potassium 4.2 mmol/L (3.5-5.1); Protein, Total 5.8 g/dL (6.0-8.3); Sodium 139 mmol/L (136-145)
[2020-12-13] MEDS ORDERED: Dexamethasone 4 MG TAB ONE (13:19)
[2020-12-13] MEDS ORDERED: PROVENTIL INHALER 6.7 G (200 INHALATIONS) ONE ×2 (13:19→13:20)
[2020-12-13] MEDS ORDERED: Acetaminophen 500 MG TAB ONE (13:19)
[2020-12-13] MEDS ORDERED: Albuterol 200 PUFF (6.7GM INHALER) ONE (13:29)
== END 2020-12-13 14:57 | disposition home or self-care (01) ==
LOC: ERS 12:05
DX: R07.9 Chest pain, unspecified (principal); J44.9 Chronic obstructive pulmonary disease, unspecified; Z87.891 Personal history of nicotine dependence
CPT/HCPCS: 36415; 71045; 80053; 84484; 85025; 93005; J8540

== ENCOUNTER 2021-02-19 15:32 | Emergency (ER) | payer MEDICARE | END 2021-02-19 16:20 | disposition left against medical advice (07) | LOC: ERS 15:32 | DX: Z53.21 Procedure and treatment not carried out due to patient leaving prior to being seen by health care provider (principal) ==

== ENCOUNTER 2021-02-22 15:42 | Outpatient (CLI) | payer MEDICARE | END 2021-02-22 15:43 | disposition home or self-care (01) | LOC: RAD 15:42 | PROVIDERS: ATTEND Student in an Organized Health Care Education/Training Program | DX: S69.91XA Unspecified injury of right wrist, hand and finger(s), initial encounter (principal) ==

== ENCOUNTER 2021-09-11 08:14 | Emergency (ER) | payer MEDICARE ==
[2021-09-11] MEDS ORDERED: Mag-Al 1200 mg/1200 mg/30 ML UDCUP ONE (09:17)
[2021-09-11] MEDS ORDERED: Lidocaine Viscous Sol 2% 15 ml UD Cup ONE (09:17)
[2021-09-11] MEDS ORDERED: Ondansetron ODT 4 MG TAB ONE (09:19)
== END 2021-09-11 10:03 | disposition home or self-care (01) ==
LOC: ERS 08:14
DX: K21.00 Gastro-esophageal reflux disease with esophagitis, without bleeding (principal); R13.10 Dysphagia, unspecified
CPT/HCPCS: 99283; Q0162

== ENCOUNTER 2021-10-31 07:21 | Emergency (ER) | payer MEDICARE ==
[2021-10-31] MEDS ORDERED: Acetaminophen 500 MG TAB ONE (07:57)
[2021-10-31] MEDS ORDERED: Meclizine HCl 25 MG TAB ONE (08:35)
== END 2021-10-31 08:45 | disposition home or self-care (01) ==
LOC: ERS 07:21
DX: R51.9 Headache, unspecified (principal); R42 Dizziness and giddiness; J45.909 Unspecified asthma, uncomplicated; Z79.899 Other long term (current) drug therapy
CPT/HCPCS: 70450

== ENCOUNTER 2022-04-27 17:14 | Emergency (ER) | payer MEDICARE ==
[2022-04-27 18:12] LABS: #Eosinphils 0.1 thou/uL (0.0-0.7); #Lymphocytes 1.5 thou/uL (1.20-3.40); #Monocytes 0.6 thou/uL (0.11-0.59); #Neutrophils 5.9 thou/uL (1.40-6.50); %Basophils 0.3 % (0.0-1.0); %Eosinophils 1.4 % (0.0-10.0); %Lymphocytes 18.5 % (21.0-51.0); %Monocytes 6.8 % (0.0-10.0); %Neutrophils 73.1 % (42.0-75.0); Hemoglobin 14.4 g/dL (12.0-16.0); Mean Platelet Volume 10.1 fL (7.4-10.4); Platelet Count 160 10x3/uL (130-400); RBC Distribution Width 12.5 % (11.5-14.5); Red Blood Cell (RBC) Count 4.79 mill/uL (4.20-5.40); White Blood Cell (WBC) Count 8.1 10x3/uL (4.8-10.8)
[2022-04-27 18:29] LABS: ALT (SGPT) 16 U/L (8-55); AST (SGOT) 16 U/L (5-34); Albumin 3.1 g/dL (3.5-5.0); Alkaline Phosphatase 66 U/L (40-110); Anion Gap 9 mmol/L (10-20); BUN (Urea Nitrogen) 19 mg/dL (7.0-18.7); Bilirubin, Total 0.4 mg/dL (0.2-1.2); Calc. Creatinine Clearance 0 mL/min (70-130); Carbon Dioxide 23 mmol/L (22-29); Chloride 110 mmol/L (98-107); Estimated GFR 89; Glucose 96 mg/dL (70-105); Magnesium 1.9 mg/dL (1.6-2.6); Potassium 4.4 mmol/L (3.5-5.1); Protein, Total 5.1 g/dL (6.0-8.3); Sodium 138 mmol/L (136-145)
[2022-04-27] MEDS ORDERED: Aspirin Chewable 81 MG TAB ONE (19:40)
== END 2022-04-27 22:20 | disposition home or self-care (01) ==
LOC: ERS 17:14
DX: R07.9 Chest pain, unspecified (principal); R00.2 Palpitations; R94.31 Abnormal electrocardiogram [ECG] [EKG]; F17.210 Nicotine dependence, cigarettes, uncomplicated
CPT/HCPCS: 36415; 71045; 80053; 83735; 84484; 85025; 93005

== ENCOUNTER 2022-06-20 07:33 | Emergency (ER) | payer MEDICARE ==
[2022-06-20 08:15] LABS: #Eosinphils 0.1 thou/uL (0.0-0.7); #Lymphocytes 1.4 thou/uL (1.20-3.40); #Monocytes 0.4 thou/uL (0.11-0.59); #Neutrophils 3.7 thou/uL (1.40-6.50); %Basophils 0.6 % (0.0-1.0); %Eosinophils 2.4 % (0.0-10.0); %Lymphocytes 24.3 % (21.0-51.0); %Monocytes 7.6 % (0.0-10.0); %Neutrophils 65.1 % (42.0-75.0); Hemoglobin 13.5 g/dL (12.0-16.0); Mean Corpuscular HGB CONC 31.3 g/dL (32.0-36.0); Mean Corpuscular Hemoglobin 28.7 pg (27.0-31.0); Mean Corpuscular Volume 91.7 fl (78.0-98.0); Mean Platelet Volume 9.5 fL (7.4-10.4); Platelet Count 208 10x3/uL (130-400); RBC Distribution Width 12.8 % (11.5-14.5); Red Blood Cell (RBC) Count 4.72 mill/uL (4.20-5.40); White Blood Cell (WBC) Count 5.7 10x3/uL (4.8-10.8)
[2022-06-20 08:39] LABS: ALT (SGPT) 15 U/L (8-55); AST (SGOT) 15 U/L (5-34); Albumin 3.4 g/dL (3.5-5.0); Alkaline Phosphatase 74 U/L (40-110); Anion Gap 10 mmol/L (10-20); BUN (Urea Nitrogen) 14 mg/dL (7.0-18.7); Bilirubin, Total 0.2 mg/dL (0.2-1.2); Calc. Creatinine Clearance 0 mL/min (70-130); Calcium 8.2 mg/dL (7.8-10.44); Carbon Dioxide 21 mmol/L (22-29); Chloride 109 mmol/L (98-107); Estimated GFR 108; Globulin 2.4 g/dL (2.4-3.5); Glucose 85 mg/dL (70-105); Lipase 5 U/L (8-78); Potassium 3.8 mmol/L (3.5-5.1); Protein, Total 5.8 g/dL (6.0-8.3); Sodium 136 mmol/L (136-145)
[2022-06-20 11:23] LABS: Troponin I Less than 0.010 ng/mL (< 0.028)
[2022-06-20 11:27] LABS: Bilirubin Negative (Negative); Blood, Urine Negative (Negative); Clarity Clear (Clear); Glucose, Urine (Dipstick) Normal (Negative); Ketone, Urine Negative (Negative); Leukocyte Negative Leu/uL (Negative); Nitrite Negative (Negative); Protein, Urine (Dipstick) Negative (Neg-Trace); Urobilinogen Normal mg/dL (Less than 2); pH, Urine 7.5 (5.0-9.0)
== END 2022-06-20 12:17 | disposition home or self-care (01) ==
LOC: ERS 07:33
DX: R07.9 Chest pain, unspecified (principal); F17.210 Nicotine dependence, cigarettes, uncomplicated
CPT/HCPCS: 36415; 71045; 80053; 81003; 83690; 83880; 84484; 85025; 93005

== ENCOUNTER 2022-07-07 11:54 | Emergency (ER) | payer MEDICARE ==
[~2022-07-07 11:54] MED LIST: Iopamidol-370 76% 500 ML MDV (1 ML CHARGE) ONE
[2022-07-07 13:14] LABS: #Eosinphils 0.1 thou/uL (0.0-0.7); #Monocytes 0.4 thou/uL (0.11-0.59); #Neutrophils 5.7 thou/uL (1.40-6.50); %Basophils 0.5 % (0.0-1.0); %Eosinophils 0.9 % (0.0-10.0); %Lymphocytes 14.2 % (21.0-51.0); %Monocytes 5.9 % (0.0-10.0); %Neutrophils 78.5 % (42.0-75.0); Hemoglobin 15.5 g/dL (12.0-16.0); Mean Corpuscular HGB CONC 31.8 g/dL (32.0-36.0); Mean Corpuscular Hemoglobin 29.5 pg (27.0-31.0); Mean Corpuscular Volume 92.6 fl (78.0-98.0); Mean Platelet Volume 9.6 fL (7.4-10.4); Platelet Count 231 10x3/uL (130-400); RBC Distribution Width 12.6 % (11.5-14.5); Red Blood Cell (RBC) Count 5.24 mill/uL (4.20-5.40); White Blood Cell (WBC) Count 7.2 10x3/uL (4.8-10.8)
[2022-07-07] MEDS ORDERED: diphenhydrAMINE 50 MG/ML VIAL ONE (13:39)
[2022-07-07] MEDS ORDERED: methylPREDNISolone Sod Succ 40 MG VIAL ONE (13:39)
[2022-07-07] MEDS ORDERED: Famotidine/PF 20 mg/2ml Vial ONE (13:39)
[2022-07-07 14:16] LABS: Bilirubin Negative (Negative); Blood, Urine Negative (Negative); Clarity Clear (Clear); Glucose, Urine (Dipstick) Normal (Negative); Ketone, Urine Negative (Negative); Leukocyte Negative Leu/uL (Negative); Nitrite Negative (Negative); Protein, Urine (Dipstick) Negative (Neg-Trace); Specific Gravity, Urine 1.012 (1.002-1.036); Urobilinogen Normal mg/dL (Less than 2)
[2022-07-07 14:19] LABS: Pregnancy Test - Urine (BHCG) Negative (Negative); Pregu Control Background? CLEAR/WHITE (CLR/WHITE); Pregu Control Bar Appear? YES (CONTROL BAR); Specific Gravity 1.012 (1.002-1.036)
[2022-07-07 14:58] LABS: ALT (SGPT) 13 U/L (8-55); AST (SGOT) 16 U/L (5-34); Alkaline Phosphatase 76 U/L (40-110); Anion Gap 16 mmol/L (10-20); BUN (Urea Nitrogen) 12 mg/dL (7.0-18.7); Bilirubin, Total 0.5 mg/dL (0.2-1.2); Calc. Creatinine Clearance 0 mL/min (70-130); Carbon Dioxide 21 mmol/L (22-29); Chloride 107 mmol/L (98-107); Estimated GFR 97; Globulin 2.5 g/dL (2.4-3.5); Glucose 91 mg/dL (70-105); Lipase 46 U/L (8-78); Potassium 4.8 mmol/L (3.5-5.1); Protein, Total 6.5 g/dL (6.0-8.3); Sodium 139 mmol/L (136-145)
== END 2022-07-07 16:34 | disposition home or self-care (01) ==
LOC: EEVIPCON 11:54 → ERS 11:54
DX: Z00.00 Encounter for general adult medical examination without abnormal findings (principal); J44.9 Chronic obstructive pulmonary disease, unspecified; F17.210 Nicotine dependence, cigarettes, uncomplicated
CPT/HCPCS: 36415; 74177; 80053; 81003; 81025; 83690; 84484; 85025; 93005; 96374; 96375; J1200; J2920; Q9967; S0028

== ENCOUNTER 2022-09-18 22:14 | Emergency (ER) | payer MEDICARE ==
[2022-09-18] MEDS ORDERED: Acetaminophen 500 MG TAB ONE (23:33)
== END 2022-09-18 23:45 | disposition home or self-care (01) ==
LOC: ERS 22:14
DX: B34.9 Viral infection, unspecified (principal); F17.210 Nicotine dependence, cigarettes, uncomplicated
CPT/HCPCS: 71045; 93005

== ENCOUNTER 2023-05-04 19:20 | Emergency (ER) | payer MEDICARE ==
[2023-05-04] MEDS ORDERED: TETANUS, DIPHTHERIA TOX,ADULT (TDVAX) 0.5 ML VIAL IM ONE ×2 (19:45→19:46)
[2023-05-04] MEDS ORDERED: Boostrix 0.5 ML (Tdap) VIAL (>/=7 yrs of age) ONE (19:48)
== END 2023-05-04 20:05 | disposition home or self-care (01) ==
LOC: ERS 19:20
DX: S71.152A Open bite, left thigh, initial encounter (principal); S71.112A Laceration without foreign body, left thigh, initial encounter; J45.909 Unspecified asthma, uncomplicated; F17.210 Nicotine dependence, cigarettes, uncomplicated; W54.0XXA Bitten by dog, initial encounter; Z23 Encounter for immunization; Z79.899 Other long term (current) drug therapy
CPT/HCPCS: 90471; 90714; 90715

== ENCOUNTER 2023-09-07 22:56 | Emergency (ER) | payer MEDICARE ==
[2023-09-07] MEDS ORDERED: Ondansetron ODT 4 MG TAB ONE (23:02)
[2023-09-08 00:17] LABS: #Basophils 0.03 10x3/uL (0.0-0.2); %Basophils 0.2 % (0.0-1.0); %Eosinophils 1.1 % (0.0-10.0); %Monocytes 4.6 % (0.0-10.0); %Neutrophils 89.7 % (42.0-75.0); Hematocrit 49.4 % (36.0-47.0); Hemoglobin 15.9 g/dL (12.0-16.0); Mean Corpuscular HGB CONC 32.2 g/dL (32.0-36.0); Mean Corpuscular Hemoglobin 28.7 pg (27.0-31.0); Mean Corpuscular Volume 89.2 fL (78.0-98.0); Mean Platelet Volume 11.8 fL (7.4-10.4); Platelet Count 253 10x3/uL (130-400); RBC Distribution Width 13.3 % (11.5-14.5); Red Blood Cell (RBC) Count 5.54 mill/uL (4.20-5.40)
[2023-09-08 00:32] LABS: ALT (SGPT) 24 U/L (8-55); AST (SGOT) 22 U/L (5-34); Albumin 3.5 g/dL (3.5-5.0); Alkaline Phosphatase 74 U/L (40-110); Anion Gap 15 mmol/L (10-20); BUN (Urea Nitrogen) 19 mg/dL (7.0-18.7); Bilirubin, Total 0.7 mg/dL (0.2-1.2); Calc. Creatinine Clearance 0 mL/min (70-130); Calcium 8.9 mg/dL (7.8-10.44); Carbon Dioxide 18 mmol/L (22-29); Chloride 110 mmol/L (98-107); Estimated GFR 90; Globulin 3.3 g/dL (2.4-3.5); Glucose 103 mg/dL (70-105); Lipase 13 U/L (8-78); Potassium 3.9 mmol/L (3.5-5.1); Protein, Total 6.8 g/dL (6.0-8.3); Sodium 139 mmol/L (136-145)
== END 2023-09-08 00:33 | disposition left against medical advice (07) ==
LOC: ERS 22:56
DX: Z53.21 Procedure and treatment not carried out due to patient leaving prior to being seen by health care provider (principal)
CPT/HCPCS: 80053; 83690; 85025; Q0162; 36415

== ENCOUNTER 2023-09-19 17:53 | Emergency (ER) | payer MEDICARE ==
[2023-09-19 19:02] LABS: #Basophils 0.03 10x3/uL (0.0-0.2); %Basophils 0.4 % (0.0-1.0); %Eosinophils 2.1 % (0.0-10.0); %Lymphocytes 20.9 % (21.0-51.0); %Neutrophils 68.3 % (42.0-75.0); Hematocrit 45.4 % (36.0-47.0); Hemoglobin 14.4 g/dL (12.0-16.0); Mean Corpuscular HGB CONC 31.7 g/dL (32.0-36.0); Mean Corpuscular Hemoglobin 28.5 pg (27.0-31.0); Mean Corpuscular Volume 89.9 fL (78.0-98.0); Platelet Count 251 10x3/uL (130-400); RBC Distribution Width 13.7 % (11.5-14.5); Red Blood Cell (RBC) Count 5.05 mill/uL (4.20-5.40)
[2023-09-19 19:10] LABS: BHCG - Serum Negative (NEGATIVE); Pregs Control Background? CLEAR/WHITE (CLR/WHITE); Pregs Control Bar Appear? YES (CONTROL BAR)
[2023-09-19 19:15] LABS: ALT (SGPT) 33 U/L (8-55); AST (SGOT) 29 U/L (5-34); Albumin 2.8 g/dL (3.5-5.0); Alkaline Phosphatase 68 U/L (40-110); Anion Gap 11 mmol/L (10-20); BUN (Urea Nitrogen) 9 mg/dL (7.0-18.7); Bilirubin, Total 0.4 mg/dL (0.2-1.2); Calc. Creatinine Clearance 0 mL/min (70-130); Calcium 8.6 mg/dL (7.8-10.44); Carbon Dioxide 22 mmol/L (22-29); Chloride 107 mmol/L (98-107); Estimated GFR 114; Globulin 2.8 g/dL (2.4-3.5); Glucose 86 mg/dL (70-105); Potassium 4.3 mmol/L (3.5-5.1); Protein, Total 5.6 g/dL (6.0-8.3); Sodium 136 mmol/L (136-145)
[2023-09-19 19:20] LABS: Troponin I Less than 0.010 ng/mL (< 0.028)
[2023-09-19 21:15] LABS: Bacteria/HPF None Seen HPF (None Seen); Bilirubin Negative (Negative); Blood, Urine Negative (Negative); CAUTI Indications for Culture Pelvic or flank pain; Clarity Clear (Clear); Glucose, Urine (Dipstick) Normal (Negative); Ketone, Urine Negative (Negative); Leukocyte Negative Leu/uL (Negative); Nitrite Negative (Negative); Protein, Urine (Dipstick) Negative (Neg-Trace); RBC/HPF 0-3 HPF (0-3); Squamous Epithelial 0-3 HPF (0-3); Urobilinogen Normal mg/dL (Less than 2); WBC/HPF 0-3 HPF (0-3)
[2023-09-19 21:16] LABS: Urine Culture Reflex No No
[2023-09-19] MEDS ORDERED: fentaNYL 50 mcg/mL 1 mL Vial ONE (22:02)
[2023-09-19] MEDS ORDERED: Dexamethasone 10 MG/ML VIAL ONE (22:02)
[2023-09-19] MEDS ORDERED: Lorazepam 2 MG/ML VIAL ONE (22:02)
[2023-09-19] MEDS ORDERED: Ondansetron PF 4 MG/2 ML Vial ONE (22:28)
== END 2023-09-19 23:00 | disposition home or self-care (01) ==
LOC: ERS 17:53
DX: R07.89 Other chest pain (principal); M54.2 Cervicalgia
CPT/HCPCS: 71045; 80053; 81001; 83880; 84484; 84703; 85025; 93005; J1100; J2060; J2405; J3010; 36415; 96374; 96375

== ENCOUNTER 2023-12-19 13:06 | Emergency (ER) | payer MEDICARE | END 2023-12-19 14:25 | disposition home or self-care (01) | LOC: ERS 13:06 | DX: M25.571 Pain in right ankle and joints of right foot (principal); F17.200 Nicotine dependence, unspecified, uncomplicated | CPT/HCPCS: 99283 ==

== ENCOUNTER 2023-12-28 09:23 | Outpatient (CLI) | payer MEDICARE | END 2023-12-28 09:24 | disposition home or self-care (01) | LOC: BICRAD 09:23 | DX: S69.92XA Unspecified injury of left wrist, hand and finger(s), initial encounter (principal) ==

== ENCOUNTER 2024-01-02 08:54 | Outpatient (CLI) | payer MEDICARE | END 2024-01-02 08:55 | disposition home or self-care (01) | LOC: BICMAMMO 08:54 | DX: Z12.31 Encounter for screening mammogram for malignant neoplasm of breast (principal); Z80.3 Family history of malignant neoplasm of breast; N64.89 Other specified disorders of breast | CPT/HCPCS: 77063; 77067 ==

== ENCOUNTER 2024-01-03 14:12 | Outpatient (CLI) | payer MEDICARE | END 2024-01-03 14:13 | disposition home or self-care (01) | LOC: BICMAMMO 14:12 | DX: N64.89 Other specified disorders of breast (principal) | CPT/HCPCS: 76642; 77065; G0279 ==

== ENCOUNTER 2024-02-15 11:28 | Emergency (ER) | payer MEDICARE ==
[2024-02-15] MEDS ORDERED: Acetaminophen 500 MG TAB ONE (13:45)
[2024-02-15] MEDS ORDERED: predniSONE 20 MG TAB ONE (14:01)
[2024-02-15] MEDS ORDERED: Famotidine 20 MG TAB ONE (14:02)
[2024-02-15] MEDS ORDERED: diphenhydrAMINE 25 MG CAP ONE (14:52)
== END 2024-02-15 15:34 | disposition home or self-care (01) ==
LOC: ERS 11:28
DX: M25.562 Pain in left knee (principal); F17.210 Nicotine dependence, cigarettes, uncomplicated
CPT/HCPCS: 93005; 99283; J7512

== ENCOUNTER 2024-02-21 15:11 | Emergency (ER) | payer MEDICARE ==
[2024-02-21 15:50] LABS: Bacteria/HPF None Seen HPF (None Seen); Bilirubin Negative (Negative); Blood, Urine Negative (Negative); CAUTI Indications for Culture Dysuria,urgency,freq; Clarity Clear (Clear); Glucose, Urine (Dipstick) Normal (Negative); Ketone, Urine Negative (Negative); Leukocyte Negative Leu/uL (Negative); Nitrite Negative (Negative); Protein, Urine (Dipstick) Negative (Neg-Trace); RBC/HPF 0-3 HPF (0-3); Specific Gravity, Urine 1.027 (1.002-1.036); Urobilinogen Normal mg/dL (Less than 2); WBC/HPF 0-3 HPF (0-3); pH, Urine 5.5 (5.0-9.0)
[2024-02-21 15:51] LABS: Urine Culture Reflex No No
[2024-02-21 16:37] LABS: #Basophils 0.04 10x3/uL (0.0-0.2); %Basophils 0.6 % (0.0-1.0); %Eosinophils 3.4 % (0.0-10.0); %Lymphocytes 17.4 % (21.0-51.0); %Monocytes 7.7 % (0.0-10.0); %Neutrophils 70.7 % (42.0-75.0); Hematocrit 43.6 % (36.0-47.0); Hemoglobin 14.2 g/dL (12.0-16.0); Mean Corpuscular HGB CONC 32.6 g/dL (32.0-36.0); Mean Corpuscular Hemoglobin 28.4 pg (27.0-31.0); Mean Corpuscular Volume 87.2 fL (78.0-98.0); Mean Platelet Volume 10.9 fL (7.4-10.4); Platelet Count 299 10x3/uL (130-400); RBC Distribution Width 13.6 % (11.5-14.5)
[2024-02-21 17:09] LABS: ALT (SGPT) 19 U/L (8-55); AST (SGOT) 19 U/L (5-34); Albumin 2.8 g/dL (3.5-5.0); Alkaline Phosphatase 68 U/L (40-110); Anion Gap 11 mmol/L (10-20); BUN (Urea Nitrogen) 13 mg/dL (7.0-18.7); Bilirubin, Total 0.4 mg/dL (0.2-1.2); Calc. Creatinine Clearance 0 mL/min (70-130); Calcium 8.2 mg/dL (7.8-10.44); Carbon Dioxide 24 mmol/L (22-29); Chloride 110 mmol/L (98-107); Estimated GFR 114; Globulin 2.8 g/dL (2.4-3.5); Glucose 90 mg/dL (70-105); Potassium 3.6 mmol/L (3.5-5.1); Protein, Total 5.6 g/dL (6.0-8.3); Sodium 141 mmol/L (136-145)
[2024-02-21 17:14] LABS: Troponin I Less than 0.010 ng/mL (< 0.028)
[2024-02-21] MEDS ORDERED: diphenhydrAMINE 50 MG/ML VIAL ONE (17:32)
[2024-02-21] MEDS ORDERED: methylPREDNISolone Sod Succ/PF 125 MG/2 ML VIAL ONE (17:32)
[2024-02-21] MEDS ORDERED: Famotidine/PF 20 mg/2ml Vial ONE (17:33)
== END 2024-02-21 18:33 | disposition home or self-care (01) ==
LOC: ERS 15:11
DX: J44.0 Chronic obstructive pulmonary disease with (acute) lower respiratory infection (principal); J20.9 Acute bronchitis, unspecified; M54.50 Low back pain, unspecified; F17.210 Nicotine dependence, cigarettes, uncomplicated
CPT/HCPCS: 71046; 80053; 81001; 84484; 85025; 87428; 93005; 99284; J1200; J2919; J3490; 36415

== ENCOUNTER 2024-03-21 11:44 | Emergency (ER) | payer MEDICARE ==
[2024-03-21 12:12] LABS: #Basophils 0.04 10x3/uL (0.0-0.2); %Basophils 0.7 % (0.0-1.0); %Eosinophils 3.9 % (0.0-10.0); %Monocytes 9.5 % (0.0-10.0); %Neutrophils 57.5 % (42.0-75.0); Hematocrit 42.5 % (36.0-47.0); Hemoglobin 13.6 g/dL (12.0-16.0); Mean Corpuscular Hemoglobin 27.8 pg (27.0-31.0); Mean Corpuscular Volume 86.7 fL (78.0-98.0); Platelet Count 251 10x3/uL (130-400); RBC Distribution Width 13.7 % (11.5-14.5)
[2024-03-21 12:48] LABS: Troponin I Less than 0.010 ng/mL (< 0.028)
[2024-03-21 13:04] LABS: Calc. Creatinine Clearance 0 mL/min (70-130); Estimated GFR 102
[2024-03-21 13:20] LABS: Albumin 2.9 g/dL (3.5-5.0); Anion Gap 8 mmol/L (10-20); BUN (Urea Nitrogen) 15 mg/dL (7.0-18.7); Bilirubin, Total 0.2 mg/dL (0.2-1.2); Calcium 7.9 mg/dL (7.6-10.4); Carbon Dioxide 23 mmol/L (22-29); Chloride 111 mmol/L (98-107); Glucose 87 mg/dL (70-105); Potassium 3.9 mmol/L (3.5-5.1); Protein, Total 5.6 g/dL (6.0-8.3); Sodium 138 mmol/L (136-145)
[2024-03-21 13:21] LABS: ALT (SGPT) 16 U/L (8-55); AST (SGOT) 15 U/L (5-34); Alkaline Phosphatase 65 U/L (40-110); Globulin 2.7 g/dL (2.4-3.5)
== END 2024-03-21 14:40 | disposition home or self-care (01) ==
LOC: ERS 11:44
DX: R07.89 Other chest pain (principal); F17.210 Nicotine dependence, cigarettes, uncomplicated; I25.2 Old myocardial infarction
CPT/HCPCS: 71045; 80053; 84484; 85025; 93005

== ENCOUNTER 2024-11-19 14:34 | Emergency (ER) | payer MEDICARE ==
[2024-11-19] MEDS ORDERED: Metoclopramide HCl 10 MG (2 mL) VIAL ONE (17:40)
[2024-11-19] MEDS ORDERED: Benzonatate 100 MG CAP ONE (17:40)
[2024-11-19] MEDS ORDERED: diphenhydrAMINE 50 MG/ML VIAL ONE (17:40)
[2024-11-19 18:33] LABS: #Basophils 0.03 10x3/uL (0.0-0.2); #Eosinophils 0.23 10x3/uL (0.0-0.7); #Monocytes 0.68 10x3/uL (0.11-0.59); #Neutrophils 4.18 10x3/uL (1.40-6.50); %Basophils 0.5 % (0.0-1.0); %Eosinophils 3.5 % (0.0-10.0); %Lymphocytes 22.6 % (21.0-51.0); %Monocytes 10.3 % (0.0-10.0); %Neutrophils 62.9 % (42.0-75.0); Hematocrit 43.5 % (36.0-47.0); Hemoglobin 13.5 g/dL (12.0-16.0); Mean Corpuscular Hemoglobin 26.0 pg (27.0-31.0); Mean Corpuscular Volume 83.7 fL (78.0-98.0); Platelet Count 242 10x3/uL (130-400); Red Blood Cell (RBC) Count 5.20 mill/uL (4.20-5.40); White Blood Cell (WBC) Count 6.63 10x3/uL (4.8-10.8)
[2024-11-19 18:53] LABS: ALT (SGPT) 14 U/L (Less than 34); AST (SGOT) 17 U/L (11-34); Albumin 2.7 g/dL (3.1-4.5); Alkaline Phosphatase 95 U/L (40-110); Anion Gap 10 mmol/L (10-20); BUN (Urea Nitrogen) 9 mg/dL (7.0-18.7); Bilirubin, Total 0.2 mg/dL (0.3-1.2); Calc. Creatinine Clearance 0 mL/min (70-130); Calcium 8.4 mg/dL (7.8-10.44); Carbon Dioxide 26 mmol/L (22-29); Chloride 108 mmol/L (98-107); Globulin 2.9 g/dL (2.4-3.5); Glucose 89 mg/dL (70-105); Potassium 3.9 mmol/L (3.5-5.1); Sodium 140 mmol/L (136-145)
== END 2024-11-19 19:15 | disposition home or self-care (01) ==
LOC: ERS 14:34
DX: J11.1 Influenza due to unidentified influenza virus with other respiratory manifestations (principal); R51.9 Headache, unspecified; I25.2 Old myocardial infarction
CPT/HCPCS: 71046; 80053; 84484; 85025; 87081; 87428; 87430; 93005; 96374; 96375; 99285; J1200; J2765; J2919

== ENCOUNTER 2025-02-15 16:45 | Emergency (ER) | payer MEDICARE ==
[2025-02-15] MEDS ORDERED: diphenhydrAMINE 50 MG/ML VIAL ONE (17:31)
[2025-02-15] MEDS ORDERED: Famotidine/PF 20 mg/2ml Vial ONE (17:31)
== END 2025-02-15 20:37 | disposition home or self-care (01) ==
LOC: ERS 16:45
DX: J01.00 Acute maxillary sinusitis, unspecified (principal); H61.23 Impacted cerumen, bilateral; R42 Dizziness and giddiness; R29.700 NIHSS score 0; J44.9 Chronic obstructive pulmonary disease, unspecified; I25.2 Old myocardial infarction; F17.210 Nicotine dependence, cigarettes, uncomplicated
CPT/HCPCS: 70496; 70498; 71101; 96374; 96375; 99284; J1200; J1308; J2919